=== PATIENT | female | born 1995 | race African-American/Black ===

== ENCOUNTER 2020-03-17 21:12 | Emergency (ER) | payer OTHER ==
[2020-03-17] MEDS ORDERED: Lidocaine 1% 20 ML MDV ONE (21:33)
== END 2020-03-17 21:48 | disposition home or self-care (01) ==
LOC: MADERS 21:12
DX: O99.611 Diseases of the digestive system complicating pregnancy, first trimester (principal); K02.9 Dental caries, unspecified; K08.89 Other specified disorders of teeth and supporting structures; O99.211 Obesity complicating pregnancy, first trimester; O99.011 Anemia complicating pregnancy, first trimester; O10.911 Unspecified pre-existing hypertension complicating pregnancy, first trimester; O99.511 Diseases of the respiratory system complicating pregnancy, first trimester; J45.909 Unspecified asthma, uncomplicated; O99.341 Other mental disorders complicating pregnancy, first trimester; F43.10 Post-traumatic stress disorder, unspecified; F90.9 Attention-deficit hyperactivity disorder, unspecified type; F31.9 Bipolar disorder, unspecified; Z79.899 Other long term (current) drug therapy; Z3A.10 10 weeks gestation of pregnancy
CPT/HCPCS: 64400